=== PATIENT | female | born 1975 | race Caucasian/White ===

== ENCOUNTER → 2017-02-07 | Outpatient (CLI) | payer BC, OTHER ==
--- NOTE | 2017-02-07 08:42 | DIAGNOSTIC IMAGING REPORT ---
LEFT KNEE RADIOGRAPHS WITH COMPARISON STANDING AP RADIOGRAPH OF THE RIGHT KNEE CLINICAL HISTORY: Medial left knee pain. COMPARISON: None FINDINGS: Comparison standing AP radiograph of the right knee demonstrates moderate osteophytosis of the right knee. Alignment of the left knee is anatomic. No acute fracture or joint effusion is identified. Medial and lateral compartment joint spaces are preserved. There is mild to moderate osteophytosis within these compartments. There is narrowing of the lateral patellofemoral joint space with extensive osteophytosis. IMPRESSION: 1. No acute fracture or joint effusion of the left knee. 2. Moderate osteoarthritis within the patellofemoral compartment of the left knee with mild osteoarthritis within the medial and lateral compartments. Electronically signed by: Kael Villegas M.D. 02/07/2017 8:40 AM Dictated Date/Time: 02/07/2017 8:39 AM
== END | disposition home or self-care (01) ==
LOC: C.RDSM 08:23
PROVIDERS: ATTEND Internal Medicine
DX: M25.562 Pain in left knee (principal); M17.12 Unilateral primary osteoarthritis, left knee

== ENCOUNTER → 2017-09-19 | Outpatient (CLI) | payer OTHER ==
[2017-09-19 09:42] LABS: BLOOD UREA NITROGEN 16 mg/dl (7-18); CALCIUM 9.4 mg/dl (8.5-10.1); CARBON DIOXIDE 26 mmol/L (21-32); CREATININE 0.96 mg/dl (0.60-1.20); GLUCOSE 83 mg/dl (70-99); SODIUM 137 mmol/L (136-145)
[2017-09-19 09:48] LABS: CHOLESTEROL 151 mg/dl (0-200); LDL CHOLESTEROL CALCULATED 84 mg/dl
== END | disposition home or self-care (01) ==
LOC: C.LAB1850 06:58
PROVIDERS: ATTEND Family Medicine
DX: Z13.6 Encounter for screening for cardiovascular disorders (principal); E55.9 Vitamin D deficiency, unspecified

== ENCOUNTER 2018-11-27 05:52 | Observation (INO) ==
--- NOTE | 2018-11-16 13:02 | PAT Medication Instructions ---
Medication Instructions Date of Service November 16, 2018 Home Medications ibuprofen [Advil] 600 mg PO Q6H PRN spironolactone 50 mg PO QPM ASK your surgeon for instructions ibuprofen [Advil] 600 mg PO Q6H PRN Take morning of surgery With a small sip of water, OTHERWISE NOTHING TO EAT OR DRINK AFTER MIDNIGHT: Take evening before surgery spironolactone 50 mg PO QPM Other Notes If you have any questions please call us at [phone] or [phone] or [phone] or [phone]
--- NOTE | 2018-11-17 12:12 | Anesthesiology Consultation ---
Date of Service November 17, 2018 Assessment & Plan (1) Encounter for pre-operative examination: Check test AM DOS Chart Review Chart Review: Acceptable Risk for Surgery and Patient seen in Pre Admission Testing Teaching & Discussion Pre-Anesthesia Teaching/Discussion Notes: Instructed NPO after midnight before surgery,except medications with 15 cc of water. Medication instructions provided according to the PAT guidelines. History Surgery Operation Date: 11/27/18 07:00 Proposed Procedures p Total Laparoscopic Hysterectomy, Bilateral Salpingectomy and Cystoscopy,Bilateral Oophorectomy - Lo Izquierdo Height/Weight Height: 6 ft 1.5 in Weight: 70.6 kg Allergies Allergy/AdvReac Type Severity Reaction Status Date / Time No Known Allergies Allergy Unknown Verified 11/12/18 08:05 Medications Home Medications Medication Instructions Recorded Confirmed Last Taken ibuprofen [Advil] 600 mg PO Q6H PRN 11/12/18 11/12/18 Unknown spironolactone 50 mg PO QPM 11/12/18 11/12/18 Unknown Past Medical History Medical History Acne ON SPIRONOLACTONE Anxiety HX Arthritis MVP (mitral valve prolapse) NOTED ON REMOTE ECHO PER PATIENT; NO RECENT ECHO/NO MURMUR NOTED ON PAT EXAM Exercise / Class Metabolic Activity II 4-5 Yardwork/Stairs/Walk up hill Past Family History Family History Father Family history of diabetes mellitus Past Surgical History Surgical History History of appendectomy History of arthroscopy KNEE X 3 History of hysteroscopy History of lumpectomy of left breast BENIGN Past Anesthesia History No Hx of Anesthesia Complications and No Family Hx of Anesthesia Complications History of PONV No Hx of PONV and Hx of Motion Sickness Social History Smoking Status: Never smoker Do You Dip or Chew Tobacco: No Hx Alcohol Use: Yes Alcohol type: hard liquor alcohol intake frequency: a few times a week Hx Substance Use: No substance use type: does not use Review of Systems Patient denies chest pain, shortness of breath, dyspnea on exertion, cough, wheezing, palpitations. Physical Exam Vital Signs VITALS BP 115/70 P 57 TEMP 98.3 SP02 96%RA RESP18 PHYSICAL Full neck and c-spine range of motion. Full TMJ range of motion. TMD 3.5 finger breaths Mallampati Score 1 Dentition: intact, several crowns Lungs: clear throughout to auscultation Cardiac: regular rate and rhythm, no murmurs noted Spine: normal Carotid arteries: negative bruit Extremities: no edema Testing Laboratory Results Blood Type B Negative 11/17/18 12:24 Antibody Screen NEGATIVE 11/17/18 12:24 10/06/18 WBC 8.00 H/H 14.3/40.9 PLATELETS 276 SODIUM 141 POTASSIUM 4.5 CHLORIDE 106 CO2 23 BUN 18 CREATININE 0.9 GLUCOSE 88
[2018-11-27] MEDS ORDERED: CEFAZOLIN 2000MG 2,000 MG/15 ML SYR IV SCH (06:00)
[2018-11-27] MEDS ORDERED: LR 15ML/HR IV SCH ×2 (06:00)
[2018-11-27] MEDS ORDERED: SODIUM CHLORIDE 0.9% 1000ML 1,000 ML IV SCH (06:00)
--- NOTE | 2018-11-27 06:59 | History & Physical Bridge Note ---
Date of Service November 27, 2018 History & Physical Bridge Note I have examined the patient, reviewed the History & Physical and in the interval since the performance of the History & Physical I have noted the following changes of clinical significance: no changes noted
[2018-11-27] MEDS ORDERED: MIDAZOLAM HCL 1 MG/ML 2ML VIAL ONE (07:01)
[2018-11-27] MEDS ORDERED: fentaNYL citrate 100 MCG/2 ML VIAL ONE ×2 (07:02→08:31)
[2018-11-27] MEDS ORDERED: ACETAMINOPHEN 1000 MG/100 ML IV IV ONE (07:05)
[2018-11-27] MEDS ORDERED: ATROPINE SULFATE 0.1 MG/ML 10ML SYR IV PRN (07:07)
[2018-11-27] MEDS ORDERED: KETOROLAC 30 MG/ML VIAL IV PRN ×2 (07:07→09:18)
[2018-11-27] MEDS ORDERED: HYDROmorphone INJ 1 MG/ML SYRINGE IV PRN (07:07)
[2018-11-27] MEDS ORDERED: PROMETHAZINE HCL 6.25 MG in SODIUM CHLORIDE 0.9% 50 ML IV PRN (07:07)
[2018-11-27] MEDS ORDERED: ONDANSETRON INJ 2 MG/ML 2 ML VIAL IV PRN ×3 (07:07→14:50)
[2018-11-27] MEDS ORDERED: BUPIVACAINE 0.5 % 5 MG/1 ML MPF 30ML VIAL ONE (07:10)
[2018-11-27] MEDS ORDERED: METHYLENE BLUE 0.5% 10 ML VIAL ONE (07:10)
[2018-11-27] MEDS ORDERED: PROPOFOL IV EMULSION 10 MG/ML 20 ML VIAL IV ONE (07:43)
[2018-11-27] MEDS ORDERED: ROCURONIUM BROMIDE 10 MG/ML 5 ML VIAL ONE (07:43)
[2018-11-27] MEDS ORDERED: DEXAMETHASONE SOD INJ 4 MG/ML VIAL ONE (07:43)
[2018-11-27] MEDS ORDERED: LIDOCAINE HCL 2% 2 ML VIAL/AMP(20MG/ML) INFIL ONE (07:43)
[2018-11-27] MEDS ORDERED: ONDANSETRON INJ 2 MG/ML 2 ML VIAL ONE (07:43)
[2018-11-27] MEDS ORDERED: GLYCOPYRROLATE 0.2 MG/ML VIAL ONE ×2 (07:45→08:46)
[2018-11-27] MEDS ORDERED: TISSEEL FIBRIN SEALANT 10ML TOP ONE (08:18)
[2018-11-27] MEDS ORDERED: HYDROmorphone INJ 2 MG/ML SYR/VIAL ONE (08:31)
[2018-11-27] MEDS ORDERED: NEOSTIGMINE METHYLSULFATE 5 MG/5 ML SYR ONE (08:46)
--- NOTE | 2018-11-27 09:12 | Post Operative Brief Note ---
Immediate Post Op Note v1 Date of Surgery November 27, 2018 Pre & Post Diagnosis Operation Date: 11/27/18 07:15 Pre-Op Diagnosis: Uterine Fibroids, Heavy Menstrual Bleeding Post-Op Diagnosis: Uterine Fibroids, Heavy Menstrual Bleeding Procedure Operation Date: 11/27/18 07:15 Actual Procedures p Total Laparoscopic Hysterectomy, Bilateral Salpingo-oophorectomy, and Cystoscopy(Bilateral) - Lo Izquierdo Surgeon Lo Izquierdo Proposal Specialist Char Hodges PA-C Estimated Blood Loss 50 Findings Consistent with Post-Op Diagnosis Drains Munoz Catheter
[2018-11-27] MEDS ORDERED: OXYCODONE/ACETAMINOPHEN 5mg/325mg TAB PO PRN ×2 (09:18→14:50)
[2018-11-27] MEDS ORDERED: METOCLOPRAMIDE HCL INJ 5 MG/ML 2 ML VIAL IV PRN (09:18)
--- NOTE | 2018-11-27 09:26 | Operative Report ---
Post Operative Report Pre & Post Diagnosis Operation Date: 11/27/18 07:15 Pre-Op Diagnosis: Uterine Fibroids, Heavy Menstrual Bleeding Post-Op Diagnosis: Uterine Fibroids, Heavy Menstrual Bleeding Procedure Operation Date: 11/27/18 07:15 Actual Procedures p Total Laparoscopic Hysterectomy, Bilateral Salpingo-oophorectomy, and Cystoscopy(Bilateral) - Lo Izquierdo Surgeon Lo Izquierdo Aviation Maintenance Instructor Char Hodges PA-C Estimated Blood Loss 50 Findings See Below 1. 10 cm enlarged fibroid uterus 2. Normal appearing fallopian tubes bilaterally 3. Normal appearing ovaries bilaterally 4. Anterior and posterior cul-de-sacs free of lesions or adhesions 5. Normal appearing liver edge 6. Appendix surgically removed Fluids See Anesthesia Report Specimens Uterus, cervix, bilateral fallopian tubes and ovaries Drains Ceballos catheter removed prior to the end of the case Anesthesia Type General Complications none Disposition Disposition: Recovery Room Indications 43 yo with heavy menstrual bleeding and uterine fibroids desiring definitive surgical management via hysterectomy. Description of Procedure Under GA in the dorsal lithotomy position, the patient was prepped and drapped in the usual sterile fashion. Beginning at the vagina, a ceballos catheter was inserted under sterile conditions and left in situ for the remainder of the case. A weighted speculum was then placed in the vagina and with the help of a right angle retractor the cervix was visualized and grasped anteriorly with a single tooth tenaculum. The uterus was sounded to 10 cm with a uterine sound. The cervical os was dilated. An Advincula uterine manipulator with a metal cup was inserted. The weighted speculum was then removed. Attention was then turned to the abdomen. 0.5% marcaine solution was used for infiltration of all port sites. Beginning in the subumbilical area, the skin was first infiltrated with ~ 2 cc of the marcaine solution, then a 5 mm incision was made through the skin with a #11 blade. Direct entry with a 5 mm trocar, sleeve, and laparoscope was entered into the peritoneal cavity. The opening pressure was < 8 mmHg. The peritoneal cavity was insufflated with CO2 gas to a maximum pressure of 20 mmHg. Examination of the peritoneal cavity revealed no signs of injury from entry and normal anatomical structures. The patient was then placed in steep Trendelenburg and three more 5 mm trocars were placed, one on the right and two on the left, in the standard technique, taking care to avoid the epigastric vessels. All trocars were placed under direct visualization with no inadvertent damage to underlying structures. The uterus was upheld from below and revealed an enlarged fibroid uterus and normal tubes and ovaries. Beginning on the left side, the Infundibular ligament was identified by lifting the tube towards the anterior wall of the abdomen. The ureter was confirmed along the pelvic side wall and peristalsis was noted. The SHANA harmonic device was then used to clamp and ligate the IP ligament in three sequential bites with ligation. The IP was then cut middistance, again being sure to be clear of the ureter. Following this, the broad ligament was sequentially grasped, ligated, and cut in the direction of the round ligament hugging next to the fallopian tube. The round ligament was then ligated and cut, followed by the uteroovarian ligatment. Following this, the anterior leaf of the broad ligament was then taken down on the left side, dissecting down towards the peritoneal reflection at the base of the bladder and adjacent to the cervix. The same process was then repeated on the right side such that both sides met and the anterior leaflet had been appropriately skeletonized. Once the bladder was appropriately dissected free from the lower anterior uterine segment and the tissues skeletonized, the uterine arteries were bilaterally clamped and ligated. Pedicles were checked and hemostatic. At the level of the metal cup of the uterine manipulator, the vaginal vault was incised circumferentially with the SHANA Harmonic. The uterus was vaginally excised with a 15 blade through the vagina to decrease the bulk of the uterus. This allowed the uterus with fibroids, cervix, tubes and ovaries to be delivered through the vagina and sent to pathology. A vaginal occluder was then placed into the vagina to form a pneumatic seal and all the pedicles as well as the cuff edges were examined. Hemostasis was noted. The vaginal vault was then closed with a V-Loc barbed stitch being sure to avoid the bladder lateral pedicles. Following vault closure, an inspection of all areas was made to ensure hemostasis. Tisseal was then placed along the adnexal regions and the vaginal cuff. All ports were removed under direct visualization and hemostasis noted. All the incision sites were then closed with 4-0 monocryl sutures in a subcuticular fashion and dermabond. The vaginal occluder and ceballos catheter were then removed. Cystoscopy was then performed. Normal appearing bladder visualized. Bladder was free of suture or lesions. Brisk bilateral efflux of urine by the ureteral orifices was noted. The bladder was drained and the cystoscope removed without incident. The right periurethral area was noted to be oozing, most likely from vaginally excising the enlarged fibroid uterus. The tissue was reapproximated with 2-0 Vicryl in a running fashion. Hemostasis was achieved. At the end of the procedure, all sponges, instruments, and sharps were counted and correct. Estimated blood loss was 50 ml. The patient was taken to recovery in stable condition. I attest to the content of the Intraoperative Record and any orders documented therein. Any exceptions are noted below.
--- NOTE | 2018-11-27 10:35 | Anesthesiology Progress Note ---
Date of Service November 27, 2018 Anesthesia Post Procedure Vital Signs Vital Signs: Temp Pulse Pulse Resp BP BP Pulse Ox 11/27/18 10:05 36.5 C 53 L 14 119/69 98 11/27/18 09:55 36.7 C 52 L 19 117/77 98 11/27/18 09:45 55 L 16 124/63 98 11/27/18 09:35 52 L 13 124/68 100 11/27/18 09:25 54 L 16 117/72 100 11/27/18 09:19 36.7 C 70 14 121/71 100 11/27/18 06:18 36.6 C 59 L 18 125/63 99 Pain Intensity Lower Abdomen: Pain Intensity: 5 Transfer of Care Handoff Completed per policy Notes Mental Status: alert / awake / arousable Patient Amnestic to Procedure: Yes Nausea / Vomiting: adequately controlled Pain: adequately controlled Airway Patency, RR, SpO2: stable & adequate BP & HR: stable & adequate Hydration State: stable & adequate Anesthetic Complications: no major complications apparent
[2018-11-27] MEDS ORDERED: PROMETHAZINE HCL 6.25 MG in SODIUM CHLORIDE 0.9% 50 ML IV STA ×2 (12:51→14:40)
[2018-11-27] MEDS ORDERED: ACETAMINOPHEN 325 MG TAB PO PRN (14:50)
[2018-11-27] MEDS ORDERED: PROMETHAZINE HCL 25 MG in SODIUM CHLORIDE 0.9% 50 ML IV PRN (14:54)
[2018-11-27] MEDS: SIMETHICONE 80 MG CHEW PO SCH ×2 (17:24→20:11)
[2018-11-27] MEDS: IBUPROFEN 600 MG TAB PO SCH ×2 (18:26→23:13)
[2018-11-27] MEDS: DOCUSATE SODIUM 100 MG CAP PO SCH (20:11)
[2018-11-28] MEDS: SIMETHICONE 80 MG CHEW PO SCH ×2 (03:23→08:07)
[2018-11-28] MEDS: IBUPROFEN 600 MG TAB PO SCH (05:59)
[2018-11-28] MEDS: DOCUSATE SODIUM 100 MG CAP PO SCH (08:07)
--- NOTE | 2018-11-28 08:34 | Surgery Progress Note ---
Date of Service November 28, 2018 Subjective doing fine passing gas tolerating diet Physical Exam Constitutional: WD/WN, vitals as above comfortable incisions are clean/dry/intact abdomen soft neg [facility] for discharge Results & Data Vital Signs (Past 12 Hours) Vital Signs Temp Pulse Pulse Resp BP Pulse Ox 11/28/18 07:20 36.7 C 53 L 18 93/57 L 96 11/28/18 03:20 36.9 C 53 L 16 100/59 L 96 11/27/18 23:15 36.7 C 55 L 18 93/52 L 97
--- NOTE | 2018-12-15 19:04 | Discharge Summary ---
Date of Service December 15, 2018 Admission HPI Per Admitting Provider 43 year old G0 with LMP with LMP 10/30/18 using condoms for contraception presents with uterine fibroids and heavy menstrual bleeding. Patient noted to have abnormal menstrual cycles at annual gynecological exam. Menses originally every 25 days, now every 22 days. Patient with spotting one week prior to menses and one week after menses. Patient with light to heavy bleeding for most of the month. TVUS was ordered and revealed an enlarged uterus with fibroids. Patient with history of irregular menstrual bleeding. Office endometrial biopsy attempted by two Providers with no success due to Patient's inability to cayla ate the pain. Patient also endorses urinary frequency and feeling of incomplete emptying. Denies incontinence. Denies bowel symptoms. D&C hysteroscopy on 10/15/18 revealed fragmented leiomyoma and disordered proliferative endometrium. Patient desires definitive surgical management via total laparoscopic hysterectomy, bilateral salpingo-oophorectomy(Patient with increased risk of breast cancer) and cystoscopy. Admission Exam (Per Admitting) Constitutional WD/WN, vitals as above Respiratory normal respiratory effort, lungs clear to auscultation Cardiovascular RRR, no murmur, no edema Gastrointestinal (Abdomen) Inspection/Auscultation: abdomen normal to inspection and + abdominal surgical incision Discharge Data Procedures Performed Operation Date: 11/27/18 07:15 Actual Procedures p Total Laparoscopic Hysterectomy, Bilateral Salpingo-oophorectomy, and Cystoscopy(Bilateral) - [facility] (1) S/P laparoscopic hysterectomy: Patient meeting all discharge criteria. Discharge home with post-operative instructions and medications. Discharge Instructions POST OPERATIVE: BOWEL FUNCTION/MEDICATIONS: 1. Constipation pain and discomfort are the most common complaints 5-7 days after surgery. Points 2-6 address the things that can help. 2. Chewing gum can help stimulate the gut and help improve digestion and motility. 3. Milk of Magnesia 1-2 times per day until return of bowel function. 4. Colace is a stool softener that helps. Taking this 2-3 times per day until bowel function returns to normal is highly recommended. 5. Dulcolax is a laxative that may be used if several days have passed without a bowel movement. Alternatively Miralax may be used daily instead. 6. Drink plenty of fluids as this will also reduce constipation. 7. Narcotic pain medications will be prescribed by your physician. They are safe to use and we encourage you to use them. If you are not allergic, ibuprofen will also be prescribed. Many patients will be able to transition off of the narcotic medications to ibuprofen by postoperative day 3. ACTIVITY RECOMMENDATIONS: 1. Get plenty of rest and listen to your body. If you are tired, take a nap. 2. You may shower, but do not take a tub bath until you see your doctor at the 2 week post operative visit. 3. Absolutely NO intercourse and nothing in the vagina until you are examined by your doctor at the 6 week visit. At that visit it will be determined when such activities can be resumed. This can range from 6-12 weeks after your surgery depending on healing time. 4. The main physical activity in the first week should be walking. By the second week you can slowly increase activity. There are no limits on walking up and down stairs. 5. Do not lift more than 5-10 lbs for 4 weeks. Remember the "one-handed rule", i.e. if you can lift something with only one hand it's likely okay. 6. Minimize logging crew supervisor like vacuuming and exercising for 4 weeks. "Overdoing it" can lead to incisions not healing, pain and vaginal bleeding, so again, listen to your body. 7. Driving can be resumed when you feel able. Do not drive within 24 hours of taking a narcotic medication. EXPECTATIONS: 1. Vaginal spotting, bleeding and discharge are common after surgery. There may even be an odor to the discharge which is often related to sutures used in the vagina. If you experience heavy vaginal bleeding, call the office number day or night [phone]. 2. Bladder discomfort is common after surgery from the catheter. This usually resolves in 1-2 weeks. 3. By the end of the 3rd or 4th week you should be feeling much better. It may take up to 6 weeks for your energy levels to return to normal. 4. Narcotic medications have side effects such as: dizziness, headache, nausea and/or vomiting. If you suspect your pain medication is causing problems, call our office and we may be able to prescribe an alternate medication. 5. The skin incisions are often covered with a liquid bandage. This will gradually peel off over time. CALL THE OFFICE IF YOU HAVE ANY OF THE FOLLOWIN. Temperature of 101 degrees or higher. 2. Severe abdominal or pelvic pain not relieved by pain medication. 3. Persistent nausea or vomiting. 4. Increased pain with urination or difficulty urinating. 5. Bright red bleeding that soaks more than 1 pad per hour. CONTACT PHONE NUMBERS: Main Office: [phone] Avoid all tobacco products. If you need help to stop smoking, call [place]'s FREE QUITLINE at . This is a free call.
== END 2018-11-28 09:30 | disposition home or self-care (01) ==
LOC: 4N 05:52 → ASU 05:52